=== PATIENT | female | born 1940 | race Caucasian/White ===

== ENCOUNTER 2022-05-06 08:30 | Outpatient (CLI) | payer MEDICARE, SELFPAY ==
[2022-05-06 21:28] LABS: Albumin* 4.1 g/dL (3.3-5.0); Chloride* 109 mmol/L (96-114); Sodium* 141 mmol/L (135-149)
[2022-05-06 21:29] LABS: Potassium* 4.1 mmol/L (3.6-5.1)
[2022-05-06 21:31] LABS: Alkaline Phosphatase* 96 U/L (40-150); Aspartate Amino Transferase* 19 U/L (12-35); Bilirubin Total* 0.4 mg/dL (0.1-1.5); Blood Urea Nitrogen* 37 mg/dL (7-30); Carbon Dioxide* 21 mmol/L (20-32); Creatinine* 1.3 mg/dL (0.5-1.5); Estimated Glomerular Filt Rate 41 ml/min; Total Protein* 6.6 g/dL (6.0-8.3)
[2022-05-06 21:32] LABS: Alanine Aminotransferase* 16 U/L (4-35); Calcium* 9.1 mg/dL (8.4-10.6); Glucose* 105 mg/dL (60-115)
== END 2022-05-06 08:31 | disposition home or self-care (01) ==
LOC: FRMREF 11:32
PROVIDERS: PCP Physician Assistant Medical; Visit Provider Dermatology
DX: Z79.899 Other long term (current) drug therapy (principal)
CPT/HCPCS: 80053

== ENCOUNTER 2022-08-20 09:56 | Outpatient (CLI) | payer MEDICARE, SELFPAY ==
[2022-08-20 22:11] LABS: Bilirubin Direct* 0.3 mg/dL (0.0-0.5); Bilirubin Total* 0.8 mg/dL (0.1-1.5); Total Protein* 6.3 g/dL (6.0-8.3)
[2022-08-20 22:12] LABS: Alanine Aminotransferase* 15 U/L (4-35); Alkaline Phosphatase* 95 U/L (40-150); Aspartate Amino Transferase* 21 U/L (12-35)
== END 2022-08-20 09:57 | disposition home or self-care (01) ==
PROVIDERS: PCP Physician Assistant Medical; Visit Provider Dermatology
DX: Z79.899 Other long term (current) drug therapy (principal)
CPT/HCPCS: 80076

== ENCOUNTER 2023-02-17 11:25 | Outpatient (CLI) | payer MEDICARE, SELFPAY | END 2023-02-17 11:26 | disposition home or self-care (01) | LOC: NFLDREF 02-18 07:36 | PROVIDERS: PCP Physician Assistant Medical; Referring Provider Physician Assistant Medical; Visit Provider Dermatology | DX: L65.9 Nonscarring hair loss, unspecified (principal); Z79.631 Long term (current) use of antimetabolite agent | CPT/HCPCS: 80076 ==

== ENCOUNTER 2023-05-20 11:10 | Outpatient (CLI) | payer MEDICARE, SELFPAY | END 2023-05-20 11:11 | disposition home or self-care (01) | LOC: NFLDREF 05-21 10:47 | PROVIDERS: PCP Physician Assistant Medical; Referring Provider Physician Assistant Medical; Visit Provider Dermatology | DX: L40.9 Psoriasis, unspecified (principal); Z79.631 Long term (current) use of antimetabolite agent | CPT/HCPCS: 80053 ==

== ENCOUNTER 2023-08-20 11:22 | Outpatient (CLI) | payer MEDICARE, SELFPAY | END 2023-08-20 11:23 | disposition home or self-care (01) | LOC: NFLDREF 08-26 08:00 | PROVIDERS: PCP Physician Assistant Medical; Referring Provider Physician Assistant Medical; Visit Provider Dermatology | DX: Z79.631 Long term (current) use of antimetabolite agent (principal) | CPT/HCPCS: 80053 ==

== ENCOUNTER 2023-11-23 10:59 | Outpatient (CLI) | payer MEDICARE, SELFPAY | END 2023-11-23 11:00 | disposition home or self-care (01) | LOC: NFLDREF 12-13 14:46 | PROVIDERS: PCP Physician Assistant Medical; Referring Provider Physician Assistant Medical; Visit Provider Dermatology | DX: L20.9 Atopic dermatitis, unspecified (principal); Z79.631 Long term (current) use of antimetabolite agent | CPT/HCPCS: 80076 ==

== ENCOUNTER 2024-03-01 13:48 | Outpatient (REF) | payer MEDICARE, SELFPAY ==
[2024-03-01 14:09] LABS: Basophils Absolute Auto 0.02 K/uL (0.00-0.30); Basophils Percent Auto 0.2 % (0.0-3.0); Eosinophils Percent Auto 1.2 % (0.0-7.0); Hematocrit 40.1 % (33.0-51.0); Hemoglobin* 12.7 gm/dL (12.0-16.0); Immature Granulocytes Abs Auto 0.01 K/uL (0.00-0.30); Immature Granulocytes Pct Auto 0.1 %; Lymphocytes Percent Auto 19.1 % (20-44); Mean Corpuscular HGB Conc 32 gm/dL (32-36); Mean Corpuscular Hemoglobin 32 pg (26-34); Mean Corpuscular Volume 102 fL (80-100); Monocytes Percent Auto 14.5 % (0.0-11.0); Neutrophils Absolute Auto 5.25 K/uL (1.7-7.0); Neutrophils Percent Auto 64.9 % (42.0-72.0); Platelet Count* 283 K/uL (140-440); RDW Coefficient of Variation % 15.8 % (11.5-15.5); Red Blood Count 3.94 m/uL (4.00-5.20); White Blood Count* 8.11 K/uL (4.50-11.00)
[2024-03-01 14:14] LABS: Slide Review Reflex No
[2024-03-01 14:22] LABS: Albumin* 4.1 g/dL (3.3-5.0); Chloride* 110 mmol/L (96-114); Sodium* 140 mmol/L (135-149)
[2024-03-01 14:23] LABS: Potassium* 4.2 mmol/L (3.6-5.1)
[2024-03-01 14:25] LABS: Alkaline Phosphatase* 92 U/L (40-150); Anion Gap 9 mEq/L (7-15); Aspartate Amino Transferase* 23 U/L (12-35); Bilirubin Total* 0.5 mg/dL (0.1-1.5); Blood Urea Nitrogen* 23 mg/dL (7-30); Carbon Dioxide* 21 mmol/L (20-32); Creatinine* 0.9 mg/dL (0.5-1.5); Estimated Glomerular Filt Rate 63 ml/min; Glucose* 88 mg/dL (60-115); Total Protein* 6.4 g/dL (6.0-8.3)
[2024-03-01 14:26] LABS: Alanine Aminotransferase* 13 U/L (4-35); Calcium* 9.8 mg/dL (8.4-10.6)
== END 2024-03-01 13:49 | disposition home or self-care (01) ==
LOC: NPINS 13:48
PROVIDERS: PCP Physician Assistant Medical; Visit Provider Dermatology
DX: L20.89 Other atopic dermatitis (principal)
CPT/HCPCS: 80053; 85025

== ENCOUNTER 2024-06-01 21:56 | Outpatient (RCR) | payer MEDICARE, SELFPAY ==
[2024-06-01 22:41] LABS: Albumin* 4.3 g/dL (3.3-5.0); Chloride* 103 mmol/L (96-114); Sodium* 135 mmol/L (135-149)
[2024-06-01 22:42] LABS: Potassium* 4.9 mmol/L (3.6-5.1)
[2024-06-01 22:44] LABS: Alkaline Phosphatase* 95 U/L (40-150); Anion Gap 10 mEq/L (7-15); Aspartate Amino Transferase* 22 U/L (12-35); Bilirubin Total* 0.6 mg/dL (0.1-1.5); Blood Urea Nitrogen* 36 mg/dL (7-30); Carbon Dioxide* 22 mmol/L (20-32); Creatinine* 1.2 mg/dL (0.5-1.5); Estimated Glomerular Filt Rate 45 ml/min; Glucose* 96 mg/dL (60-115); Hematocrit* 38.5 % (33.0-51.0); Hemoglobin* 12.3 gm/dL (12.0-16.0); Immature Granulocytes Abs Auto 0.10 K/uL (0.00-0.30); Immature Granulocytes Pct Auto 0.9 %; Mean Corpuscular HGB Conc 32 gm/dL (32-36); Mean Corpuscular Hemoglobin 33 pg (26-34); Mean Corpuscular Volume 102 fL (80-100); RDW Coefficient of Variation % 15.5 % (11.5-15.5); Red Blood Count* 3.78 m/uL (4.00-5.20); Total Protein* 6.7 g/dL (6.0-8.3); White Blood Count* 10.93 K/uL (4.50-11.00)
[2024-06-01 22:45] LABS: Alanine Aminotransferase* 18 U/L (4-35); Calcium* 9.9 mg/dL (8.4-10.6)
[2024-06-01 23:12] LABS: Lymphocytes Absolute Auto 1.10 K/uL (0.90-2.90); Slide Review Reflex No
[2024-08-24 08:55] LABS: Albumin* 4.2 g/dL (3.3-5.0); Chloride* 108 mmol/L (96-114); Sodium* 141 mmol/L (135-149)
[2024-08-24 08:56] LABS: Potassium* 5.1 mmol/L (3.6-5.1)
[2024-08-24 08:58] LABS: Alanine Aminotransferase* 24 U/L (4-35); Anion Gap 9 mEq/L (7-15); Aspartate Amino Transferase* 36 U/L (12-35); Blood Urea Nitrogen* 21 mg/dL (7-30); Carbon Dioxide* 24 mmol/L (20-32); Creatinine* 1.1 mg/dL (0.5-1.5); Estimated Glomerular Filt Rate 50 ml/min; Total Protein* 6.6 g/dL (6.0-8.3)
[2024-08-24 08:59] LABS: Alkaline Phosphatase* 94 U/L (40-150); Bilirubin Total* 0.5 mg/dL (0.1-1.5); Calcium* 9.9 mg/dL (8.4-10.6); Glucose* 92 mg/dL (60-115)
[2024-08-24 09:02] LABS: Hematocrit* 37.5 % (33.0-51.0); Hemoglobin* 11.6 gm/dL (12.0-16.0); Immature Granulocytes Abs Auto 0.02 K/uL (0.00-0.30); Immature Granulocytes Pct Auto 0.2 %; Lymphocytes Absolute Auto 1.82 K/uL (0.90-2.90); Mean Corpuscular HGB Conc 31 gm/dL (32-36); Mean Corpuscular Hemoglobin 32 pg (26-34); Mean Corpuscular Volume 104 fL (80-100); RDW Coefficient of Variation % 14.3 % (11.5-15.5); Red Blood Count* 3.61 m/uL (4.00-5.20); White Blood Count* 8.66 K/uL (4.50-11.00)
[2024-08-24 09:04] LABS: Slide Review Reflex No
== END 2025-05-16 08:41 | disposition home or self-care (01) ==
LOC: NPINS 21:56
PROVIDERS: PCP Physician Assistant Medical; Visit Provider Dermatology
DX: L20.89 Other atopic dermatitis (principal)
CPT/HCPCS: 80053; 85025

== ENCOUNTER 2024-11-30 11:33 | Outpatient (CLI) | payer MEDICARE, SELFPAY ==
[2024-11-30 22:18] LABS: Chloride* 107 mmol/L (96-114); Potassium* 5.1 mmol/L (3.6-5.1); Sodium* 137 mmol/L (135-149)
[2024-11-30 22:20] LABS: Basophils Absolute Auto 0.07 K/uL (0.00-0.30); Basophils Percent Auto 0.7 % (0.0-3.0); Eosinophils Absolute Auto 0.09 K/uL (0.00-0.50); Eosinophils Percent Auto 0.9 % (0.0-7.0); Hematocrit 38.3 % (33.0-51.0); Hemoglobin* 12.1 gm/dL (12.0-16.0); Immature Granulocytes Abs Auto 0.01 K/uL (0.00-0.30); Immature Granulocytes Pct Auto 0.1 %; Lymphocytes Percent Auto 12.4 % (20-44); Mean Corpuscular HGB Conc 32 gm/dL (32-36); Mean Corpuscular Hemoglobin 32 pg (26-34); Mean Corpuscular Volume 101 fL (80-100); Monocytes Percent Auto 8.5 % (0.0-11.0); Neutrophils Percent Auto 77.4 % (42.0-72.0); Platelet Count* 275 K/uL (140-440); RDW Coefficient of Variation % 16.2 % (11.5-15.5); Red Blood Count 3.79 m/uL (4.00-5.20); White Blood Count* 9.77 K/uL (4.50-11.00)
[2024-11-30 22:21] LABS: Alanine Aminotransferase* 20 U/L (4-35); Alkaline Phosphatase* 91 U/L (40-150); Anion Gap 8 mEq/L (7-15); Aspartate Amino Transferase* 25 U/L (12-35); Bilirubin Total* 0.7 mg/dL (0.1-1.5); Blood Urea Nitrogen* 31 mg/dL (7-30); Calcium* 9.4 mg/dL (8.4-10.6); Carbon Dioxide* 22 mmol/L (20-32); Estimated Glomerular Filt Rate 56 ml/min; Glucose* 84 mg/dL (60-115); Total Protein* 6.3 g/dL (6.0-8.3)
[2024-11-30 22:25] LABS: Slide Review Reflex No
== END 2024-11-30 11:34 | disposition home or self-care (01) ==
LOC: NPINS 11:34
PROVIDERS: Visit Provider Dermatology
DX: L20.89 Other atopic dermatitis (principal)
CPT/HCPCS: 80053; 85025

== ENCOUNTER 2025-03-07 13:09 | Outpatient (CLI) | payer MEDICARE, SELFPAY ==
[2025-03-07 16:57] LABS: Hematocrit 36.6 % (33.0-51.0); Hemoglobin* 11.6 gm/dL (12.0-16.0); Immature Granulocytes Abs Auto 0.03 K/uL (0.00-0.30); Immature Granulocytes Pct Auto 0.3 %; Lymphocytes Absolute Auto 1.40 K/uL (0.90-2.90); Mean Corpuscular HGB Conc 32 gm/dL (32-36); Mean Corpuscular Hemoglobin 33 pg (26-34); Mean Corpuscular Volume 103 fL (80-100); RDW Coefficient of Variation % 13.9 % (11.5-15.5); Red Blood Count 3.55 m/uL (4.00-5.20); White Blood Count* 9.01 K/uL (4.50-11.00)
[2025-03-07 16:59] LABS: Albumin* 4.1 g/dL (3.3-5.0); Chloride* 109 mmol/L (96-114); Potassium* 3.9 mmol/L (3.6-5.1); Sodium* 140 mmol/L (135-149)
[2025-03-07 17:02] LABS: Alanine Aminotransferase* 14 U/L (4-35); Alkaline Phosphatase* 70 U/L (40-150); Anion Gap 9 mEq/L (7-15); Aspartate Amino Transferase* 23 U/L (12-35); Bilirubin Total* 0.5 mg/dL (0.1-1.5); Blood Urea Nitrogen* 23 mg/dL (7-30); Calcium* 10.0 mg/dL (8.4-10.6); Carbon Dioxide* 22 mmol/L (20-32); Creatinine* 1.2 mg/dL (0.5-1.5); Estimated Glomerular Filt Rate 45 ml/min; Glucose* 73 mg/dL (60-115); Total Protein* 6.3 g/dL (6.0-8.3)
[2025-03-07 17:03] LABS: Slide Review Reflex No
== END 2025-03-07 13:10 | disposition home or self-care (01) ==
LOC: NPINS 13:12
PROVIDERS: Visit Provider Dermatology
DX: L20.89 Other atopic dermatitis (principal)
CPT/HCPCS: 80053; 85025

== ENCOUNTER 2025-05-30 10:48 | Outpatient (CLI) | payer MEDICARE, SELFPAY ==
[2025-05-30 14:29] LABS: Hematocrit* 36.4 % (33.0-51.0); Hemoglobin* 11.6 gm/dL (12.0-16.0); Immature Granulocytes Abs Auto 0.02 K/uL (0.00-0.30); Immature Granulocytes Pct Auto 0.3 %; Mean Corpuscular HGB Conc 32 gm/dL (32-36); Mean Corpuscular Hemoglobin 32 pg (26-34); Mean Corpuscular Volume 102 fL (80-100); RDW Coefficient of Variation % 15.8 % (11.5-15.5); Red Blood Count* 3.58 m/uL (4.00-5.20); White Blood Count* 7.81 K/uL (4.50-11.00)
[2025-05-30 14:33] LABS: Lymphocytes Absolute Auto 1.20 K/uL (0.90-2.90); Slide Review Reflex No
[2025-05-30 14:36] LABS: Albumin* 3.8 g/dL (3.3-5.0); Chloride* 104 mmol/L (96-114)
[2025-05-30 14:37] LABS: Potassium* 4.7 mmol/L (3.6-5.1); Sodium* 134 mmol/L (135-149)
[2025-05-30 14:39] LABS: Alanine Aminotransferase* 14 U/L (4-35); Anion Gap 7 mEq/L (7-15); Aspartate Amino Transferase* 21 U/L (12-35); Blood Urea Nitrogen* 32 mg/dL (7-30); Carbon Dioxide* 23 mmol/L (20-32); Creatinine* 1.0 mg/dL (0.5-1.5); Estimated Glomerular Filt Rate 55 ml/min
[2025-05-30 14:40] LABS: Alkaline Phosphatase* 111 U/L (40-150); Bilirubin Total* 0.5 mg/dL (0.1-1.5); Calcium* 9.8 mg/dL (8.4-10.6); Glucose* 92 mg/dL (60-115); Total Protein* 6.2 g/dL (6.0-8.3)
== END 2025-05-30 10:49 | disposition home or self-care (01) ==
LOC: NPINS 10:49
PROVIDERS: Visit Provider Dermatology
DX: L20.89 Other atopic dermatitis (principal)
CPT/HCPCS: 80053; 85025